=== PATIENT | female | born 1975 | race African-American/Black ===

== ENCOUNTER → 2017-07-09 16:31 | Outpatient (CLI) | payer MEDICAID, SELFPAY | PROVIDERS: Family Provider Family Medicine; PCP Family Medicine; Visit Provider Otolaryngology Otolaryngology/Facial Plastic Surgery | DX: J02.9 Acute pharyngitis, unspecified (principal) | CPT/HCPCS: 87070 ==

== ENCOUNTER 2017-08-02 07:36 | Day surgery (SDC) | payer MEDICAID, SELFPAY ==
[2017-08-02 07:56] LABS: Internal QC Validated? YES +Cl - CLEAR BKGD; Pregnancy, Urine Negative Negative
[2017-08-02 07:58] VITALS: BP 119/67; PULSE 59; RESP 16; TEMP 36.6; O2SAT 100; BMI 25.9
--- NOTE | 2017-08-02 08:47 | PCM.OPRPT ---
Problem List (1) Gastro-esophageal reflux disease without esophagitis Status: Acute Report of Operation Date of Procedure: 08/02/17 Pre-Operative Diagnosis: k21.9 gastroesophageal reflux disease without esophagitis Post-Operative Diagnosis: Same Surgery/Procedure Performed:: EGD with 48 hour pH probe Type of Anesthesia:: MAC Anesthesiologist: Jigar Chow Description of Procedure: Patient was brought into the endoscopy suite. Back of her throat was sprayed with Cetacaine spray. A bite-block was placed. She was placed on the left lateral decubitus position. She was given graded anesthesia. The scope was inserted into the back of the oropharynx and directed down through the esophagus into the stomach and into the duodenum without difficulty. Operative findings: #1 duodenum: Normal appearance no mass lesions no ulcerations #2 stomach: Normal appearance no mass lesions no ulcerations. 3. Esophagus: Normal appearance no mass lesions no signs of esophagitis Z line was at 39 cm and was normal in appearance. The scope was withdrawn. PH probe was marked at 33 cm. The probe was then placed in the back of the oropharynx and directed down to the 33 cm stacey. Suction was applied to the pH probe. It was deployed appropriately. The scope was reinserted in the back of the oropharynx and directed down through the esophagus. PH probe was identified and photograph was obtained. The scope was withdrawn and the patient tolerated the procedure well. - Admit VTE Documentation VTE Present on Admission: No VTE Mechan Device Prophylaxis: None VTE Pharm Prophylaxis ordered?: No Reason prophylaxis not ordered:: Treatment Not Indicated
[2017-08-02 08:52] VITALS: BP 119/67; PULSE 63; RESP 16; O2SAT 100
[2017-08-02 09:00] VITALS: BP 108/65; BP 119/67; PULSE 59; RESP 16; O2SAT 100
[2017-08-02 09:05] VITALS: BP 113/63; BP 119/67; PULSE 58; RESP 16; O2SAT 100
[2017-08-02 09:10] VITALS: BP 113/68; BP 119/67; PULSE 57; RESP 16; TEMP 36.4; O2SAT 100
[2017-08-02 09:34] VITALS: BP 119/67
== END 2017-08-02 09:45 | disposition home or self-care (01) ==
LOC: EN 07:37 → AC 07:38
PROVIDERS: Anesthesiology; Family Provider Family Medicine; PCP Family Medicine; Visit Provider Surgery
PROC: (CPT 43235; principal; 2017-08-02 08:25)
DX: K21.9 Gastro-esophageal reflux disease without esophagitis (principal); J30.9 Allergic rhinitis, unspecified; Z86.2 Personal history of diseases of the blood and blood-forming organs and certain disorders involving the immune mechanism; Z79.899 Other long term (current) drug therapy
CPT/HCPCS: 43235; 91035; 81025; J7120

== ENCOUNTER → 2017-09-27 11:17 | Outpatient (CLI) | payer MEDICAID, SELFPAY ==
--- NOTE | 2017-09-27 11:17 | DT_ITS ---
This patient was seen during an EMR downtime September 27, 2017 - October 04, 2017. This patient may have a combination of paper and electronic documentation or all paper documentation. All documentation is viewable within the e-chart portion of [facility] for each patient visit.
== END ==
PROVIDERS: Family Provider Family Medicine; PCP Family Medicine; Visit Provider Family Medicine
DX: R00.0 Tachycardia, unspecified (principal)
CPT/HCPCS: 93225; 93226

== ENCOUNTER 2020-12-10 17:46 | Emergency (ER) | payer MEDICAID, SELFPAY ==
[2020-12-10 17:48] VITALS: BP 116/85; PULSE 77; RESP 18; TEMP 36.8; O2SAT 99; BMI 27.6
--- NOTE | 2020-12-10 17:50 | NURSING ---
NO OLD EKGS
--- NOTE | 2020-12-10 18:07 | EDS_ITS ---
HPI History of Present Illness Chief Complaint: Chest Pain Informant: patient Narrative Narrative: Presents valuation chest pressure initially started 7 hours ago while grocery shopping. She went home laid down woke up at 4 symptoms return. Mild dyspnea pressure in the back. Denies nausea radicular symptoms or diaphoresis. No history of similar. Denies hypertension, diabetes, hypercholesterolemia. Denies family history of MIs at young age. Denies tobacco. No PE risk factors. No history of stress test. States only mild pressure at this time. Prior Similar Symptoms: No Recent Illness/Hospitalization: No CVD Risk Factors: Negative for Hypertension, Diabetes, Hypercholesterolemia, Family History 1' </=55 and Smoking PE Risk Factors: Negative for Recent Travel/Surgery, Recent Immobilization, Prior DVT or PE, Cancer and OCP + Smoking + >/=35 PFSH PFSH Medical History Allergic rhinitis GERD (gastroesophageal reflux disease) Home Medications mometasone 50 mcg/actuation nasal spray 4 spray INTRANASAL QDAY 07/15/17 [History Last Taken Unknown] montelukast 10 mg tablet 10 mg PO QHS 07/15/17 [History Last Taken Unknown] omeprazole 20 mg PO DAILY 12/10/20 [History Last Taken Unknown] Allergy/AdvReac Type Severity Reaction Status Date / Time Penicillins Allergy Unknown Verified 12/10/20 17:49 sulfamethoxazole Allergy Rash Verified 12/10/20 18:17 [From Bactrim] trimethoprim [From Bactrim] Allergy Rash Verified 12/10/20 18:17 Family History Mother Diabetes Heart disease Hypertension Asthma Father Cancer prostate Grandfather Colon cancer Surgical History S/P section s/p EGD with PH probe (~08/02/17) Social History Smoking Status: Never smoker ROS ROS ED Constitutional Constitutional ED: Denies chills, fever(s) or sweats Eyes Eyes: Denies change in vision ENT ENT ED: Denies dysphagia or sore throat Cardiovascular Cardiovascular: Reports chest pain; Denies leg edema, palpitations or racing heartbeat Respiratory/Chest Respiratory/Chest: Reports dyspnea; Denies cough or dyspnea on exertion Gastrointestinal Gastrointestinal: Denies abdominal pain, diarrhea, nausea or vomiting Genitourinary Genitourinary ED: Denies dysuria, hematuria or urinary frequency Musculoskeletal Musculoskeletal: Denies back pain, extremity pain or neck pain Integumentary Denies rash or wounds Neurologic Neurologic: Denies headache(s), paresthesias or weakness EXAM Physical Exam Const Vital Signs: 12/10/20 17:48 12/10/20 18:11 12/10/20 19:00 Temperature 98.3 F Temperature Source Temporal Pulse Rate 77 71 63 Respiratory Rate 18 13 15 Blood Pressure 116/85 H 126/87 H 120/77 Blood Pressure Mean 95 100 91 Pulse Ox 99 98 100 Oxygen Delivery Method Room Air Room Air 12/10/20 20:25 12/10/20 21:03 Temperature Temperature Source Pulse Rate 64 64 Respiratory Rate 18 15 Blood Pressure 120/77 135/85 H Blood Pressure Mean 91 101 Pulse Ox 99 99 Oxygen Delivery Method Room Air Room Air Positive well nourished and well developed General Appearance ED: well developed and NAD HEENT Reports moist mucous membranes normocephalic and atraumatic Eyes PERRL, EOMs intact bilaterally and conjunctivae normal General Eye ED: Yes normal appearance of both eyes Neck no lymphadenopathy and supple General: Negative for tenderness Chest Wall Chest: Negative for tenderness Resp normal respiratory effort and normal air movement Effort and Inspection: symmetric chest movement; Negative for respiratory distress Cardio regular rate, regular rhythm and no murmurs Peripheral Pulses: pulses 2+ throughout GI normal to inspection, nondistended, normoactive bowel sounds and non-tender Palpation: Negative for guarding or rebound tenderness present Back/Spine no CVA tenderness and no thoracic nor lumbar tenderness Extremity normal to inspection General Extremety ED: Negative for edema or tenderness General Extremity: Negative for edema Neuro oriented x3 and no sensory deficits noted Sensorium / Orientation: awake and alert Skin no rashes or lesions noted and no wounds MDM MDM MDM Narrative Medical decision making narrative: Patient presents chest pains, initial EKG nor mal. Cardiac work-up negative. Chest x-ray negative. Patient reported concerns for urine symptoms UA sent negative for infection. She had recurrent symptoms of transient repeat EKG was unchanged. High sensitive repeat troponin at 2 hours was negative and normal. She is reassured. PERC criteria negative. Discussed with patient follow-up with her PCP in the next 3 days for further outpatient testing with return precautions. All questions were answered. Lab Data Attestation: I reviewed the patient's lab results. Labs: Laboratory Results - last 24 hr 12/10/20 12/10/20 12/10/20 18:25 18:25 18:25 WBC 5.8 RBC 4.48 Hgb 10.1 L Hct 33.8 L MCV 75.4 L MCH 22.5 L MCHC 29.9 L RDW Std Deviation 54.3 H RDW Coeff of Moi 19.9 H Plt Count 332 MPV 11.5 Immature Gran % (Auto) 0.500 Neut % (Auto) 58.2 Lymph % (Auto) 31.4 Holmes % (Auto) 7.8 Eos % (Auto) 1.2 Baso % (Auto) 0.9 Absolute Neuts (auto) 3.4 Absolute Lymphs (auto) 1.81 Nucleated RBC % 0 Sodium 136 Potassium 3.2 L Chloride 104 Carbon Dioxide 26.0 Anion Gap 6 BUN 7 Creatinine 0.61 Estim Creat Clear Calc 114.25 Est GFR (MDRD) Af Amer 136 Est GFR (MDRD) Non-Af 112 BUN/Creatinine Ratio 11.4 Glucose 91 Calcium 8.5 Troponin I High Sens 4.2 Urine Color Yellow Urine Clarity Clear Urine pH 8.0 Ur Specific [place] 1.015 Urine Protein Negative Urine Glucose (UA) Normal Urine Ketones Negative Urine Occult Blood Negative Urine Nitrite Negative Urine Bilirubin Negative Urine Urobilinogen Normal Ur Leukocyte Esterase Negative Urine RBC 0 SEEN Urine WBC 0 SEEN Ur Squamous Epith Cells 0 SEEN Urine Bacteria 0 SEEN Urine Mucus 0 SEEN 12/10/20 20:30 WBC RBC Hgb Hct MCV MCH MCHC RDW Std Deviation RDW Coeff of Moi Plt Count MPV Immature Gran % (Auto) Neut % (Auto) Lymph % (Auto) Holmes % (Auto) Eos % (Auto) Baso % (Auto) Absolute Neuts (auto) Absolute Lymphs (auto) Nucleated RBC % Sodium Potassium Chloride Carbon Dioxide Anion Gap BUN Creatinine Estim Creat Clear Calc Est GFR (MDRD) Af Amer Est GFR (MDRD) Non-Af BUN/Creatinine Ratio Glucose Calcium Troponin I High Sens 4.6 Urine Color Urine Clarity Urine pH Ur Specific [place] Urine Protein Urine Glucose (UA) Urine Ketones Urine Occult Blood Urine Nitrite Urine Bilirubin Urine Urobilinogen Ur Leukocyte Esterase Urine RBC Urine WBC Ur Squamous Epith Cells Urine Bacteria Urine Mucus Radiography Chest X-Ray - ED: 1 View, Read by ED Physician, Read by Radiologist and Normal Diagnostic Testing: Radiology Impression Chest X-Ray 12/10/20 18:30 IMPRESSION: Normal x-ray examination of the chest. Electronically Signed: Javier ShelbyDO at 19:42 EDT Tel [phone], Service support , EKG Initial EKG: Attestation: I personally reviewed and interpreted this EKG as follows: Interpretation: Sinus Rhythm Comments: Sinus rate of 69, no ST changes isolated T wave inversion in leads III. Nonspecific. Follow-up EKG: Attestation: I personally reviewed and interpreted this EKG as follows: Comments: Repeat EKG at 2028 unchanged. Discharge Plan Triage Chief Complaint: Chest Pain ED Provider: Anatoly Garrett Dx/Rx/DC Orders Clinical Impression: Chest pain Instructions: ED Chest Pain, Uncertain Cause Prescriptions: No Action montelukast [Singulair] 10 mg tablet 10 mg PO QHS RF: 0 mometasone [Nasonex] 50 mcg/actuation spray,non-aerosol 4 spray INTRANASAL QDAY RF: 0 omeprazole 20 mg Tablet,Delayed Release (Dr/Ec) 20 mg PO DAILY RF: 0 Primary Care Provider: Frank Guevara Referrals: Frank Guevara MD [Primary Care Provider] - 3-5 Days Activity Restrictions/Additional Instructions: Cardiac work-up negative today. Follow-up with your doctor in 3 days for further testing as an outpatient. Return if any worsening symptoms. Disposition Disposition: Home, Self Care
--- NOTE | 2020-12-10 18:07 | EKG12_ITS ---
Test Reason : REPEAT CP Blood Pressure : / mmHG Vent. Rate : 055 BPM Atrial Rate : 055 BPM P-R Int : 148 ms QRS Dur : 080 ms QT Int : 432 ms P-R-T Axes : 063 063 047 degrees QTc Int : 413 ms Sinus bradycardia Otherwise normal ECG Confirmed by TIP GONZALEZ, MIKE ([id number]), senior technical editor LUZ MARIA GRAHAM ([id number]) on 12/11/2020 1:46:22 PM Referred By: STACIE Confirmed By:MIKE WHELAN MD
[2020-12-10 18:11] VITALS: BP 126/87; PULSE 71; RESP 13; O2SAT 98
[2020-12-10] MEDS: Aspirin 81 MG TAB.CHEW 324 MG PO (18:14)
--- NOTE | 2020-12-10 18:30 | RAD_ITS ---
STUDY: X-RAY CHEST REASON FOR EXAM: Female, 45 years old. Chest pain TECHNIQUE: Frontal view COMPARISON: None. FINDINGS: The lungs are clear and expanded. There is no demonstrated pleural abnormality. Normal size heart. Normal mediastinum and parisa. Normal visualized pulmonary arteries. Normal visualized aortic arch and descending thoracic aorta. Normal visualized thoracic spine. Normal visualized ribs, clavicles, and shoulders. There is no demonstrated abnormality of the visualized soft tissue structures of the upper abdomen. RAD/Chest 1 View (Portable) IMPRESSION: Normal x-ray examination of the chest. Electronically Signed: Javier Shelby DO at 19:42 EDT Tel [phone], Service support ,
[2020-12-10 18:31] LABS: Absolute Lymphocyte Count 1.81 X10^3/uL (0.83-4.51); Absolute Neutrophil Count 3.4 X10^3/uL (2.0-7.7); Basophil# 0.05 X10^3/uL; Basophil% 0.9 % (0-1); Eosinophil# 0.07 X10^3/uL; Eosinophils% 1.2 % (0-5); Hematocrit 33.8 % (37-47); Hemoglobin 10.1 g/dL (12.0-15.0); Lymphocyte # 1.81 X10^3/ul (0.83-4.51); Lymphocyte % 31.4 % (19-41); Mean Corp Hgb Conc 29.9 g/dL (32-36); Mean Corpuscular Hgb 22.5 pg (27.0-32.0); Mean Corpuscular Volume 75.4 fL (81-99); Mean Platelet Vol. 11.5 fl (6.2-12.0); Monocyte# 0.45 X10^3/uL; Monocyte% 7.8 % (0-10); NRBC Flagged by Analyzer 0 % (0-5); Neutrophil # 3.35 X10^3/uL (2.7-7.7); Neutrophil % 58.2 % (47-70); Platelet Count 332 K/mm3 (150-450); RBC Distribution Width CV 19.9 % (11.6-14.6); RBC Distribution Width SD 54.3 fl (35.1-43.9); Red Blood Count 4.48 M/mm3 (4.2-5.4); White Blood Count 5.8 K/mm3 (4.4-11.0)
[2020-12-10 18:50] LABS: Anion Gap 6 (5-15); BUN 7 mg/dL (7-18); BUN/Creat Ratio 11.4 RATIO (10-20); Calcium,Total 8.5 mg/dL (8.5-10.1); Chloride 104 mmol/L (98-107); Creatinine, Serum 0.61 mg/dL (0.55-1.02); EST Glomerular Filtration Rate 112 mL/min (>60); Est Glom Filt Rate - Afr Amer 136 mL/min (>60); Estimated Creatinine Clearance 114.25 ml/min; Glucose 91 mg/dL (74-106); Potassium 3.2 mmol/L (3.5-5.1); Sodium Level 136 mmol/L (136-145); Troponin-I HS 4.2 pg/mL (3.0-53.7)
[2020-12-10 19:00] VITALS: BP 120/77; PULSE 63; RESP 15; O2SAT 100
[2020-12-10 19:39] LABS: Bacteria 0 SEEN /hpf (None Seen); Mucous, Urine 0 SEEN /hpf (<or=2+); Red Blood Cells-Urine 0 SEEN /hpf (0-5); Squamous Epithelial Cells - UA 0 SEEN /hpf (5-10); White Blood Cells 0 SEEN /hpf (0-5)
[2020-12-10 19:44] LABS: Color, Urine Yellow (Yellow); Glucose, Dipstick Normal (Normal); Ketone-Dipstick Negative (Negative); Leukocyte Esterase-Dipstick Negative /ul (Negative); Nitrite-Dipstick Negative (Negative); Occult Blood-Urine Negative /ul (Negative); Protein-Dipstick Negative (Negative); Specific Gravity, Urine 1.015 (1.002-1.030); Urine Bilirubin Dipstick Negative (Negative); Urine Clarity Clear (Clear); Urine Urobilinogen Normal (Normal)
[2020-12-10 20:25] VITALS: BP 120/77; PULSE 64; RESP 18; O2SAT 99
--- NOTE | 2020-12-10 20:25 | EKG12_ITS ---
Test Reason : Blood Pressure : / mmHG Vent. Rate : 069 BPM Atrial Rate : 069 BPM P-R Int : 140 ms QRS Dur : 072 ms QT Int : 398 ms P-R-T Axes : 069 065 031 degrees QTc Int : 426 ms Normal sinus rhythm Nonspecific ST abnormality Abnormal ECG Confirmed by TIP GONZALEZ, MIKE ([id number]), online editor LUZ MARIA GRAHAM ([id number]) on 12/11/2020 1:46:38 PM Referred By: JENY Confirmed By:MIKE WHELAN MD
[2020-12-10 20:53] LABS: Troponin-I HS 4.6 pg/mL (3.0-53.7)
[2020-12-10] MEDS: Acetaminophen 500 MG Tablet 1000 MG PO (21:01)
[2020-12-10 21:03] VITALS: BP 135/85; PULSE 64; RESP 15; O2SAT 99
== END 2020-12-10 22:04 | disposition home or self-care (01) ==
PROVIDERS: Emergency Provider Emergency Medicine; PCP Family Medicine
DX: R07.89 Other chest pain (principal); R06.00 Dyspnea, unspecified; K21.9 Gastro-esophageal reflux disease without esophagitis; Z79.899 Other long term (current) drug therapy; R00.1 Bradycardia, unspecified
CPT/HCPCS: 71045; 80048; 81001; 84484; 85025; 93005; 99285; A4216

== ENCOUNTER 2021-02-25 15:09 | Observation (INO) | payer MEDICAID, SELFPAY ==
[2021-02-25] VITALS (12 sets, daily range): BP systolic 109–139; BP diastolic 69–92; PULSE 55–70; RESP 12–18; TEMP 36–36.9; O2SAT 97–100; BMI 24.5
--- NOTE | 2021-02-25 15:14 | EKG12_ITS ---
Test Reason : CP Blood Pressure : / mmHG Vent. Rate : 058 BPM Atrial Rate : 058 BPM P-R Int : 146 ms QRS Dur : 074 ms QT Int : 406 ms P-R-T Axes : 053 056 027 degrees QTc Int : 398 ms Sinus bradycardia Low voltage QRS (Limb Leads) Confirmed by MELISSA GONZALEZ, BEKAH ([id number]), department editor LUZ MARIA GRAHAM ([id number]) on 02/27/2021 8:50:28 AM Referred By: RAMÍREZ Confirmed By:BEKAH TORRES MD
--- NOTE | 2021-02-25 15:22 | RAD_ITS ---
STUDY: X-RAY CHEST REASON FOR EXAM: Female, 45 years old. Chest pain TECHNIQUE: Single AP portable view of the chest. COMPARISON: Comparison is made with prior study 12/10/2020. FINDINGS: The lungs are clear and expanded. There is no demonstrated pleural abnormality. Normal size heart. Normal mediastinum and parisa. Normal visualized pulmonary arteries. Normal visualized aortic arch and descending thoracic aorta. Normal visualized thoracic spine. Normal visualized ribs, clavicles, and shoulders. There is no demonstrated abnormality of the visualized soft tissue structures of the upper abdomen. RAD/Chest 1 View (Portable) IMPRESSION: Normal x-ray examination of the chest. Electronically Signed: Rad Biggs MD at 15:34 EDT , Service support ,
[2021-02-25 15:58] LABS: Absolute Lymphocyte Count 1.42 X10^3/uL (0.83-4.51); Absolute Neutrophil Count 3.5 X10^3/uL (2.0-7.7); Basophil# 0.03 X10^3/uL; Basophil% 0.6 % (0-1); Eosinophil# 0.05 X10^3/uL; Eosinophils% 0.9 % (0-5); Hematocrit 33.3 % (37-47); Hemoglobin 10.3 g/dL (12.0-15.0); Lymphocyte # 1.42 X10^3/ul (0.83-4.51); Lymphocyte % 26.2 % (19-41); Mean Corp Hgb Conc 30.9 g/dL (32-36); Mean Corpuscular Volume 77.6 fL (81-99); Monocyte# 0.41 X10^3/uL; Monocyte% 7.6 % (0-10); NRBC Flagged by Analyzer 0 % (0-5); Neutrophil # 3.49 X10^3/uL (2.7-7.7); Neutrophil % 64.5 % (47-70); POSITIVE MORPHOLOGY YES; Platelet Count 281 K/mm3 (150-450); RBC Distribution Width CV 20.6 % (11.6-14.6); RBC Distribution Width SD 57.4 fl (35.1-43.9); Red Blood Count 4.29 M/mm3 (4.2-5.4); White Blood Count 5.4 K/mm3 (4.4-11.0)
--- NOTE | 2021-02-25 15:58 | ED.VIS.CHEST ---
HPI History of Present Illness Chief Complaint: Chest Pain Informant: patient Narrative Narrative: This is an overall healthy patient referred in here for chest pain with an abnormal stress test yesterday. She started having symptoms back in November. She was seen here in evaluation. This patient has very low risk factors. She has no history of smoking, blood pressure, diabetes, cholesterol or obesity. She has healthy and exercises. She was treated for reflux with a PPI. This was increased and her symptoms did improve somewhat. But she still seems to get chest pain mostly when exercising. This is caused her to decrease the exercise slightly. She got nauseated once or twice but generally does not. She has not had diaphoresis lightheadedness or shortness of breath with it. She followed up with her primary physician got an outpatient stress test. This was done yesterday. The test was terminated due to the patient having chest discomfort and ST depression. Symptoms resolved with rest. She called her physician today and states she was having some more symptoms. The results of the stress test were obtained and she was sent in here. She states she has a little bit of discomfort in her left upper chest at this time. It is much less than normal. When she gets the discomfort, it is a burning or pressure in the left chest is more radiating toward the back of the left shoulder. [facility] Medical History Allergic rhinitis GERD (gastroesophageal reflux disease) Graves disease Home Medications mometasone 50 mcg/actuation nasal spray 4 spray INTRANASAL QDAY 07/15/17 [History Last Taken Unknown] montelukast 10 mg tablet 10 mg PO QHS 07/15/17 [History Last Taken Unknown] omeprazole 20 mg PO DAILY PRN 12/10/20 [History Last Taken Unknown] ferrous sulfate 325 mg PO DAILY 02/25/21 [History Last Taken Unknown] Allergy/AdvReac Type Severity Reaction Status Date / Time Penicillins Allergy Unknown Verified 12/10/20 17:49 sulfamethoxazole Allergy Rash Verified 12/10/20 18:17 [From Bactrim] trimethoprim [From Bactrim] Allergy Rash Verified 12/10/20 18:17 Family History Mother Diabetes Heart disease Hypertension Asthma Father Cancer prostate Grandfather Colon cancer Surgical History S/P section s/p EGD with PH probe (~08/02/17) Social History Smoking Status: Never smoker ROS ROS ED Constitutional Constitutional ED: Denies fever(s) or subjective Eyes Eyes: Denies blurry vision or change in vision ENT ENT ED: Denies rhinorrhea or sore throat Cardiovascular Cardiovascular: Reports as per HPI and chest pain; Denies palpitations Respiratory/Chest Respiratory/Chest: Denies cough or dyspnea Gastrointestinal Gastrointestinal: Reports nausea; Denies abdominal pain, diarrhea or vomiting Musculoskeletal Musculoskeletal: Denies arthralgias or neck pain Integumentary Denies rash Neurologic Neurologic: Denies headache(s), paresthesias or weakness Endocrine Endocrinology: Denies polydipsia or polyuria Hematologic/Lymphatic Hematologic/Lymphatic: Denies easy bleeding or easy bruising Allergic/Immunologic Allergic/Immunologic ED: Denies urticaria EXAM Physical Exam Const Vital Signs: 02/25/21 15:09 02/25/21 15:39 02/25/21 16:28 Temperature 97.7 F L Temperature Source Temporal Pulse Rate 70 62 61 Respiratory Rate 16 16 14 Respiratory Effort Normal Non-Labored Blood Pressure 139/92 H Blood Pressure Mean 107 Pulse Ox 100 100 97 Oxygen Delivery Method Room Air Room Air Room Air 02/25/21 16:42 Temperature Temperature Source Pulse Rate 59 L Respiratory Rate 12 Respiratory Effort Blood Pressure 119/85 H Blood Pressure Mean 96 Pulse Ox 99 Oxygen Delivery Method Room Air Positive well nourished and well developed General Appearance ED: well developed and NAD HEENT normocephalic and atraumatic Eyes General Eye ED: Negative for pale conjunctiva or scleral icterus Neck no JVD Resp normal respiratory effort and clear to auscultation bilaterally Effort and Inspection: Negative for pain with movement Auscultation: Negative for rales, rhonchi or wheezes Cardio regular rate, regular rhythm and no murmurs GI normal to inspection, nondistended, normoactive bowel sounds, soft to palpation and non-tender Back/Spine no CVA tenderness Extremity normal to inspection General Extremety ED: Negative for edema or tenderness General Extremity: Negative for edema Neuro Sensorium / Orientation: awake and alert Psych mental status grossly normal Skin no rashes or lesions noted MDM MDM MDM Narrative Medical decision making narrative: Chest x-ray is normal. CBC shows mild anemia at 10.3 but I do not think this is likely the cause of her symptoms. Potassium is also minimally low at 3.3. Troponin is negative. However, this patient has exertional chest pain with a concerning stress test. She will be brought in the hospital. She will be given aspirin. Lab Data Attestation: I reviewed the patient's lab results. Labs: Laboratory Results - last 24 hr 02/25/21 02/25/21 15:42 15:42 WBC 5.4 RBC 4.29 Hgb 10.3 L Hct 33.3 L MCV 77.6 L MCH 24.0 L MCHC 30.9 L RDW Std Deviation 57.4 H RDW Coeff of Moi 20.6 H Plt Count 281 MPV TNP Immature Gran % (Auto) 0.200 Neut % (Auto) 64.5 Lymph % (Auto) 26.2 [place] % (Auto) 7.6 Eos % (Auto) 0.9 Baso % (Auto) 0.6 Absolute Neuts (auto) 3.5 Absolute Lymphs (auto) 1.42 Nucleated RBC % 0 Differential Comment SCANNED Sodium 140 Potassium 3.3 L Chloride 108 H Carbon Dioxide 29.0 Anion Gap 3 L BUN 7 Creatinine 0.60 Estim Creat Clear Calc 89.35 Est GFR (MDRD) Af Amer 139 Est GFR (MDRD) Non-Af 115 BUN/Creatinine Ratio 11.7 Glucose 99 Calcium 8.6 Troponin I High Sens 5 Radiography Diagnostic Testing: Clinical Impression(s) from Imaging Studies Chest X-Ray 02/25/21 15:22 IMPRESSION: Normal x-ray examination of the chest. Electronically Signed: Rad Biggs MD at 15:34 EDT , Service support , EKG Initial EKG: Comments: EKG done for chest pain read by me shows normal sinus rhythm with bradycardic rate at 58. No ectopy. Mild baseline variation. No acute ST elevation or depression. MA interval, QRS duration and QTc normal. Discharge Plan Triage Chief Complaint: Chest Pain ED Provider: Isacc Camara Dx/Rx/DC Orders Clinical Impression: Chest pain, Positive cardiac stress test Prescriptions: No Action montelukast [Singulair] 10 mg tablet 10 mg PO QHS RF: 0 mometasone [Nasonex] 50 mcg/actuation spray,non-aerosol 4 spray INTRANASAL QDAY RF: 0 omeprazole 20 mg Tablet,Delayed Release (Dr/Ec) 20 mg PO DAILY PRN (Reason: Heartburn) RF: 0 ferrous sulfate 325 mg (65 mg iron) tablet 325 mg PO DAILY RF: 0 Primary Care Provider: Frank Guevara Referrals: Frank Guevara MD [Primary Care Provider] - Disposition Disposition: Acute Care Hospital [facility]
[2021-02-25 16:01] LABS: Differential Indicated SCAN CRITERIA MET
[2021-02-25 16:16] LABS: Anion Gap 3 (5-15); BUN 7 mg/dL (7-18); BUN/Creat Ratio 11.7 RATIO (10-20); Calcium,Total 8.6 mg/dL (8.5-10.1); Chloride 108 mmol/L (98-107); EST Glomerular Filtration Rate 115 mL/min (>60); Est Glom Filt Rate - Afr Amer 139 mL/min (>60); Estimated Creatinine Clearance 89.35 ml/min; Glucose 99 mg/dL (74-106); Potassium 3.3 mmol/L (3.5-5.1); Sodium Level 140 mmol/L (136-145); Troponin-I HS 5 pg/mL (3.0-54.0)
[2021-02-25 16:25] LABS: Differential Comment SCANNED
--- NOTE | 2021-02-25 16:56 | PCM.HP.STD ---
HPI - General General Date of Admission: 02/25/21 Date of Service: 02/25/21 Chief Complaint: Intermittent chest pain, abnormal stress test. HPI Narrative The patient is a 45 y/o F w/ PMHx: Graves disease, GERD, Allergic rhinitis, Chronic Fe Deficiency anemia with chronic menorrhagia with fibroids who presents to the [facility] ED on 02/25/21 with history of ongoing intermittent chest pain, primarily midsternal, described as a discomfort/ache with radiation to the left shoulder blade and shoulder which actually started back in November with evaluation, and given considered low risk at that time discharged to home without patient PCP follow-up with 02/24/21 outpatient stress testing concerning for inducible ischemia with referral to ED. She notes having had the testing performed at the [facility] outpatient facility. She notes the episodes of chest discomfort with occur primarily with increased exertion with bouts of nausea with no diaphoresis, lightheadedness or dyspnea with onset. During the stress test patient had onset of chest discomfort and also had noted some EKG depressions specifically she notes. Patient does report some discomfort at this time yesterday in the left upper chest primarily described primary discomfort, rated 2-2/10, aching discomfort with some pressure with similar radiation toward the L shoulder blade and shoulder. 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 Work-up in the ED included T 97.9, heart rate 70, BP initially 39/92 with repeat 119/85, respiratory rate 16, 100% on room air, CBC with WBC 5.4, hemoglobin 10.3 with MCV 77.6, platelet 281 without shift, BMP with potassium 3.3, chloride 108 otherwise not marked appearing, troponin V high-sensitivity, chest x-ray with no acute cardiopulmonary findings, EKG with sinus rhythm with bradycardic rate [address] elevation or depression. [facility] Medical History (Updated 02/25/21 @ 20:[address] Aneta Aly MD) Allergic rhinitis Chronic iron deficiency anemia GERD (gastroesophageal reflux disease) Graves disease Menorrhagia Home Medications mometasone 50 mcg/actuation nasal spray 4 spray INTRANASAL QDAY 07/15/17 [History Last Taken Unknown] montelukast 10 mg tablet 10 mg PO QHS 07/15/17 [History Last Taken Unknown] omeprazole 20 mg PO DAILY PRN 12/10/20 [History Last Taken Unknown] ferrous sulfate 325 mg PO DAILY 02/25/21 [History Last Taken Unknown] Allergy/AdvReac Type Severity Reaction Status Date / Time Penicillins Allergy Unknown Verified 12/10/20 17:49 sulfamethoxazole Allergy Rash Verified 12/10/20 18:17 [From Bactrim] trimethoprim [From Bactrim] Allergy Rash Verified 12/10/20 18:17 Family History Mother Diabetes Heart disease Hypertension Asthma Father Cancer prostate Grandfather Colon cancer Surgical History (Updated 02/25/21 @ 20:[address] Aneta Aly MD) S/P section s/p EGD with PH probe (~08/02/17) Social History (Updated 02/25/21 @ 20:[address] Aneta Aly MD) household members: spouse and family Smoking Status: Never smoker alcohol intake: current alcohol intake frequency: a few times a month substance use type: does not use ROS ROS Narrative Admission Review of Systems: CONSTITUTIONAL: No weight loss, fever, chills, + weakness or fatigue. HEENT: Eyes: No visual loss, blurred vision, double vision or yellow sclerae. Ears, Nose, Throat: No hearing loss, sneezing, congestion, runny nose or sore throat. SKIN: No rash or itching, lesions, wounds. CARDIOVASCULAR: + chest pain, chest pressure or chest discomfort, No palpitations, edema, orthopnea, syncopal events. RESPIRATORY: No shortness of breath, cough or sputum, wheezing, hemoptysis. GASTROINTESTINAL: No anorexia, nausea, vomiting or diarrhea, abdominal pain, melena, BRBPR. GENITOURINARY: No dysuria, frequency, urgency or retention. + Menorrhagia hx. NEUROLOGICAL: No headache, dizziness, syncope, paralysis, ataxia, numbness or tingling in the extremities, focal weakness, change in bowel or bladder control, seizure. MUSCULOSKELETAL: + muscle, back pain, joint pain or stiffness. HEMATOLOGIC: + anemia, bleeding or bruising. LYMPHATICS: No enlarged nodes. No history of splenectomy. PSYCHIATRIC: No history of depression or anxiety. ENDOCRINOLOGIC: No reports of sweating, cold or heat intolerance. No polyuria or polydipsia. ALLERGIES: + history of asthma, hives, eczema or rhinitis. Vital Signs Vital Signs Vital Signs: 02/25/21 15:09 02/25/21 15:39 02/25/21 16:28 Temperature 97.7 F L Temperature Source Temporal Pulse Rate 70 62 61 Respiratory Rate 16 16 14 Respiratory Effort Normal Non-Labored Blood Pressure 139/92 H Blood Pressure Mean 107 Pulse Ox 100 100 97 Oxygen Delivery Method Room Air Room Air Room Air 02/25/21 16:42 Temperature Temperature Source Pulse Rate 59 L Respiratory Rate 12 Respiratory Effort Blood Pressure 119/85 H Blood Pressure Mean 96 Pulse Ox 99 Oxygen Delivery Method Room Air Weight Weight: 130 lb Body Mass Index (BMI) 24.5 Physical Exam Narrative Physical Examination: General: Awake, alert, oriented x 3 and cooperative, seated upright in the ED bed in no apparent distress, no current discomfort. Skin: Normal color, normal turgor, no icterus, no cyanosis. HEENT: AT/NC, EOMI, PERRLA, MMM, no carotid bruits or JVD noted. Lungs: CTA bilaterally, moderate effort, mild decrease BL bases, no rales, ronchi or wheezing. Heart: Regular rate and rhythm; no gallop, rub audible. Abdomen: Soft, NTTP, ND, normal BS, no HSM. Extremities: No cyanosis, clubbing, or edema. Neurological: Patient awake, alert, oriented as noted, cognitive function intact; pupils equally reactive to light and accommodation, cranial nerves II-XII grossly normal, moving all 4 extremities, no focal deficits, strength preserved. Psychiatric: Affect appears fatigued otherwise normal, no acute evidence of depressive or anxiety feelings. Results Lab / Micro Data Result Diagrams: 02/25/21 15:42 02/25/21 15:42 Labs: Laboratory Results - last 24 hr 02/25/21 15:42: WBC 5.4, RBC 4.29, Hgb 10.3 L, Hct 33.3 L, MCV 77.6 L, MCH 24.0 L, MCHC 30.9 L, RDW Std Deviation 57.4 H, RDW Coeff of Moi 20.6 H, Plt Count 281, MPV TNP, Immature Gran % (Auto) 0.200, Neut % (Auto) 64.5, Lymph % (Auto) 26.2, [place] % (Auto) 7.6, Eos % (Auto) 0.9, Baso % (Auto) 0.6, Absolute Neuts (auto) 3.5, Absolute Lymphs (auto) 1.42, Nucleated RBC % 0, Differential Comment SCANNED 02/25/21 15:42: Sodium 140, Potassium 3.3 L, Chloride 108 H, Carbon Dioxide 29.0, Anion Gap 3 L, BUN 7, Creatinine 0.60, Estim Creat Clear Calc 89.35, Est GFR (MDRD) Af Amer 139, Est GFR (MDRD) Non-Af 115, BUN/Creatinine Ratio 11.7, Glucose 99, Calcium 8.6, Troponin I High Sens 5 Radiology Impression Chest X-Ray 02/25/21 15:22 IMPRESSION: Normal x-ray examination of the chest. Electronically Signed: Rad Biggs MD at 15:34 EDT , Service support , Assessment & Plan Assessment/Plan (1) Chest pain: QUALIFIERS: Chest pain type: unspecified Qualified Code(s): R07.9 - Chest pain, unspecified (2) Positive cardiac stress test: PLAN: The patient is a 45 y/o F w/ PMHx: Graves disease, GERD, Allergic rhinitis, Chronic Fe Deficiency anemia with chronic menorrhagia with fibroids who presents to the [facility] ED on 02/25/21 with history of ongoing intermittent chest pain, primarily midsternal, described as a discomfort/ache with radiation to the left shoulder blade and shoulder which actually started back in November with evaluation, and given considered low risk at that time discharged to home without patient PCP follow-up with 02/24/21 outpatient stress testing concerning for inducible ischemia with referral to ED. 1. Chest Pain: EKG in ED sinus rhythm with no acute evidence of ischemia, CXR w/ no acute cardiopulmonary findings, initial trop 5 with repeat similarly 5. Will admit to PCU, place on a monitored bed to assure no acute myocardial infarction with serial cardiac enzymes and EKGs. Given patient history of recent abnormal stress testing will consult cardiology, maintain n.p.o. status after midnight, maintain on aspirin therapy, FLP in AM, supplement potassium and obtain magnesium level with repletion as needed. Will obtain coags. ASA, NG, morphine. Will request recent stress testing and history records. 2. Hypokalemia: Admission K+ 3.3, magnesium level requested, supplementation given, repeat level in AM. 3. Chronic Microcytic anemia/Fe deficiency associated with chronic menorrhagia with fibroids: Admission hemoglobin 10.3, MCV 77.6 patient notes unfortunately she is not a candidate for any specific interventions as the fibroids are smaller and did not tolerate control well. May complicate presentation if #1 evaluation with any PCI necessities and follow-up with her stitcher special machine may be necessary for more permanent intervention if this is the case. Patient currently reports regular cycles with initial 3 days light spotting followed by 3 days of significantly heavy bleeding. We will continue patient on iron supplementation. 4. Allergic rhinitis: We will continue patient home montelukast and nasal steroid spray. 5. GERD: We will continue patient home PPI. 6. Graves' disease: We will obtain TSH, free T4 levels. 7. DVT prophylaxis: SCDs, cautiously Lovenox is currently on cycle. Charges/Coding Visit Charges OBSV E&M: 50022 Initial observation care L3
[2021-02-25] MEDS: Aspirin 81 MG TAB.CHEW 324 MG PO (17:13)
[2021-02-25] MEDS: Potassium Chloride Oral Tablet 20 MEQ 40 MEQ PO (19:17)
--- NOTE | 2021-02-25 19:29 | EKG12_ITS ---
Test Reason : CP ADMISSION Blood Pressure : / mmHG Vent. Rate : 055 BPM Atrial Rate : 055 BPM P-R Int : 148 ms QRS Dur : 076 ms QT Int : 440 ms P-R-T Axes : 066 053 039 degrees QTc Int : 420 ms Sinus bradycardia Otherwise normal ECG Confirmed by MELISSA GONZALEZ, BEKAH ([id number]), proposal editor LUZ MARIA GRAHAM ([id number]) on 02/27/2021 9:08:05 AM Referred By: ASHLYN Confirmed By:BEKAH TORRES MD
[2021-02-25 20:25] LABS: Troponin-I HS 5 pg/mL (3.0-54.0)
--- NOTE | 2021-02-25 21:15 | PCM.CONS.C ---
Assessment & Plan Assessment/Plan (1) Chest pain: QUALIFIERS: Chest pain type: unspecified Qualified Code(s): R07.9 - Chest pain, unspecified PLAN: The patient does have chest discomfort. There are findings concerning for angina pectoris. At the same time the patient may not have all the classic findings concerning for angina pectoris. She has been evaluated noninvasively for both noncardiac and cardiac issues. Thus far she states despite her ongoing evaluation from a noncardiac standpoint/medical therapy from a noncardiac standpoint she continues to have symptoms. Her cardiovascular evaluation demonstrated a positive treadmill stress test. She has been referred for further evaluation and care. At the present time she will continue to be monitored. Her cardiac enzymes are negative thus far. Her ECG is demonstrated no acute change. A copy of her echocardiogram will be requested for continuity of care. Further evaluation of her coronary artery status was discussed with her including diagnostic cardiac catheterization. The procedure and risk were discussed with her. She was agreeable to this approach. In the interim she will continue medical therapy such as aspirin, nitrates as needed, beta-blockers as tolerated, etc. Also she will have additional cardiovascular risk factor evaluation with fasting lipid profile. (2) Positive cardiac stress test: PLAN: Her treadmill stress test summary is as noted. Again this is raise concern about the possibility of underlying CAD and myocardial ischemia. Thus with her recurrent chest discomfort and now hospitalization it was felt reasonable she proceed with further definitive evaluation with diagnostic cardiac catheterization. As noted above she was agreeable to this approach. (3) Gastro-esophageal reflux disease without esophagitis: PLAN: The patient has been treated for GERD. She will continue medical therapy as deemed appropriate per internal medicine. Addt'l Comments The above was discussed and reviewed with the patient. She was agreeable to this approach. This note was generated using a voice recognition system and there may be incorrect words, spelling or punctuation that were not noted when reviewing the office note prior to saving. HPI Consult Data Date of Consult: 02/25/21 HPI Narrative HPI Narrative: FRIEDA POZO, is a 45 year old female who presents for cardiovascular consultation based upon concerns of chest discomfort and an abnormal [facility] treadmill stress test. To the best of the patient's knowledge she has no known cardiovascular disease other than a cardiac murmur for which she has been evaluated at [facility] by cardiology in the past. She believes she had a transthoracic echocardiogram which was reported as unremarkable. She states for some time now she has been having chest discomfort which she states is mainly exertional. She feels a pressure in her chest. It does not necessarily radiate. She does get concerns of an element of shortness of breath and dyspnea. She has not had ongoing nausea, emesis, or diaphoresis. There is been no orthopnea, PND, peripheral pitting edema. She has had no near syncope or syncope. She states there were concerns her symptoms were related to gastroesophageal reflux. She was being treated medically with a PPI. She was subsequently referred for an outpatient treadmill stress test. She had a treadmill stress test performed yesterday at their facility. It appears she exercised on a Haseeb protocol for 5 minutes and 39 seconds achieving 75% predicted maximal heart rate with a peak blood pressure 120/82 mmHg and a peak METS capacity of 6 METS. She did develop her chest discomfort. She did develop ST segment depression. She states the collections representative at that time discontinued her study based upon the aforementioned concerns. She states she was originally being considered for a future outpatient cardiac CTA study. However in the interim she had more chest discomfort. She contacted her physician's office and was referred to the [facility] emergency department for further evaluation. Thus far her cardiac enzymes have been negative. Her ECG demonstrated sinus rhythm/sinus bradycardia. There were no acute ECG changes. She was placed in the PCU with recommendations for cardiovascular consultation for additional diagnostic studies, etc. [facility], [facility] Medical History (Updated 02/25/21 @ 20:[address] Aneta Aly MD) Allergic rhinitis Chronic iron deficiency anemia GERD (gastroesophageal reflux disease) Graves disease Menorrhagia Home Medications mometasone 50 mcg/actuation nasal spray 4 spray INTRANASAL QDAY 07/15/17 [History Last Taken Unknown] montelukast 10 mg tablet 10 mg PO QHS 07/15/17 [History Last Taken Unknown] omeprazole 20 mg PO DAILY PRN 12/10/20 [History Last Taken Unknown] ferrous sulfate 325 mg PO DAILY 02/25/21 [History Last Taken Unknown] Allergy/AdvReac Type Severity Reaction Status Date / Time Penicillins Allergy Unknown Verified 12/10/20 17:49 sulfamethoxazole Allergy Rash Verified 12/10/20 18:17 [From Bactrim] trimethoprim [From Bactrim] Allergy Rash Verified 08/17/21 18:17 Family History Mother Diabetes Heart disease Hypertension Asthma Father Cancer prostate Grandfather Colon cancer Surgical History (Updated 02/25/21 @ 20:[address] Aneta Aly MD) S/P section s/p EGD with PH probe (~08/02/17) Social History (Updated 02/25/21 @ 20:[address] Aneta Aly MD) household members: spouse and family Smoking Status: Never smoker alcohol intake: current alcohol intake frequency: a few times a month substance use type: does not use ROS Constitutional Constitutional: Reports as per HPI Eyes Eyes: Reports as per HPI ENT HEENT: Reports as per HPI Cardiovascular Cardiovascular: Reports chest pain with activity and dyspnea Respiratory/Chest Respiratory/Chest: Reports dyspnea Gastrointestinal Gastrointestinal: Reports as per HPI Genitourinary Genitourinary: Reports as per HPI Musculoskeletal Musculoskeletal: Reports as per HPI Integumentary Integumentary: Reports as per HPI Neurologic Neurologic: Reports as per HPI Physical Exam Const alert, oriented x3, no apparent distress and healthy appearing Orientation / Consciousness: awake HEENT normocephalic, head/scalp atraumatic and hearing grossly normal bilaterally Eyes PERRL, EOMs intact bilaterally and conjunctivae normal Neck full ROM, supple and no JVD Resp clear to auscultation bilaterally Cardio regular rhythm, S1 normal heart sound and S2 normal heart sound Rate: bradycardia Heart Sounds: murmur systolic II/ soft mid left sternal border, LVOT and sternal notch Extremity no pedal edema Skin no rashes or lesions noted Neuro oriented x3, moves all extremities, no focal motor deficits and no sensory deficits noted Psych mental status grossly normal Risk Stratification Risk Stratification Applicable: No Procedure Criteria Type of Procedure Procedure Type: Elective Elective Risks - COVID COVID Risk Discussion: The surgeon/proceduralist and patient have discussed in detail the risk of exposure to and/or potential harm posed by the COVID-19 virus with having a surgery/procedure at this time versus the risk of delaying the surgery/procedure. It is not possible to know either the risk of delaying the surgery or procedure or chance of getting an infection with perfect accuracy, but a joint decision was made between the patient and the surgeon/proceduralist to proceed at this time with the scheduled surgery/procedure as indicated on the consent form. Objective Data Vital Signs: Vital Signs Temp Pulse Resp BP Pulse Ox 97.9 F 62 16 130/74 H 99 02/25/21 18:59 02/25/21 18:59 02/25/21 18:59 02/25/21 18:59 02/25/21 20:38 Oxygen Delivery Method Room Air Weight: 130 lb 0.105 oz Body Mass Index (BMI) 24.5 Lab / Micro Data Result Diagrams: 02/25/21 15:42 02/25/21 15:42 Labs: Laboratory Results - last 24 hr 02/25/21 15:42: WBC 5.4, RBC 4.29, Hgb 10.3 L, Hct 33.3 L, MCV 77.6 L, MCH 24.0 L, MCHC 30.9 L, RDW Std Deviation 57.4 H, RDW Coeff of Moi 20.6 H, Plt Count 281, MPV TNP, Immature Gran % (Auto) 0.200, Neut % (Auto) 64.5, Lymph % (Auto) 26.2, [place] % (Auto) 7.6, Eos % (Auto) 0.9, Baso % (Auto) 0.6, Absolute Neuts (auto) 3.5, Absolute Lymphs (auto) 1.42, Nucleated RBC % 0, Differential Comment SCANNED 02/25/21 15:42: Sodium 140, Potassium 3.3 L, Chloride 108 H, Carbon Dioxide 29.0, Anion Gap 3 L, BUN 7, Creatinine 0.60, Estim Creat Clear Calc 89.35, Est GFR (MDRD) Af Amer 139, Est GFR (MDRD) Non-Af 115, BUN/Creatinine Ratio 11.7, Glucose 99, Calcium 8.6, Troponin I High Sens 5 02/25/21 15:42: Magnesium 2.0 02/25/21 19:33: Troponin I High Sens 5 Cardiology Labs/Tests 02/25/21 15:42: WBC 5.4, RBC 4.29, Hgb 10.3 L, Hct 33.3 L, MCV 77.6 L, MCH 24.0 L, MCHC 30.9 L, Plt Count 281, MPV TNP, Immature Gran % (Auto) 0.200, Neut % (Auto) 64.5, Lymph % (Auto) 26.2, [place] % (Auto) 7.6, Eos % (Auto) 0.9, Baso % (Auto) 0.6, Absolute Neuts (auto) 3.5, Nucleated RBC % 0 02/25/21 15:42: Sodium 140, Potassium 3.3 L, Chloride 108 H, Carbon Dioxide 29.0, Anion Gap 3 L, BUN 7, Creatinine 0.60, Est GFR (MDRD) Af Amer 139, Est GFR (MDRD) Non-Af 115, BUN/Creatinine Ratio 11.7, Glucose 99, Calcium 8.6 02/25/21 15:42: Magnesium 2.0 Rhythm: Sinus rhythm/sinus bradycardia EKG: Sinus rhythm/sinus bradycardia ECHO: [facility] echocardiogram: Unavailable for review at this time Stress Test: [facility] treadmill stress test: Summary: As noted above Radiography Diagnostic Testing: Radiology Impression Chest X-Ray 02/25/21 15:22 IMPRESSION: Normal x-ray examination of the chest. Electronically Signed: Rad Biggs MD at 15:34 EDT , Service support ,
[2021-02-25] MEDS: Metoprolol Tartrate 25 MG Tablet 12.5 MG PO (22:20)
[2021-02-25] MEDS: Montelukast 10 MG Tablet PO (22:21)
[2021-02-25] MEDS: 0.9% Normal Saline 1,000 ML 100 ML IV (22:41)
[2021-02-25] MEDS: 0.9% Saline Lock 10 ML Syringe IV (22:42)
[2021-02-25 22:49] LABS: Troponin-I HS 4 pg/mL (3.0-54.0)
[2021-02-26] VITALS (16 sets, daily range): BP systolic 102–134; BP diastolic 40–98; PULSE 47–76; RESP 12–14; TEMP 36.7–36.8; O2SAT 96–100
--- NOTE | 2021-02-26 00:04 | PCS.PANDOC ---
PANDEMIC DOCUMENTATION INITIATED: Date: 12/09/2020 Time: 190
--- NOTE | 2021-02-26 05:55 | EKG12_ITS ---
Test Reason : AM EKG Blood Pressure : / mmHG Vent. Rate : 056 BPM Atrial Rate : 056 BPM P-R Int : 150 ms QRS Dur : 074 ms QT Int : 446 ms P-R-T Axes : 073 070 054 degrees QTc Int : 430 ms Sinus bradycardia Otherwise normal ECG Confirmed by MELISSA GONZALEZ, BEKAH ([id number]), copy editor LUZ MARIA GRAHAM ([id number]) on 02/27/2021 9:06:31 AM Referred By: ASHLYN Confirmed By:BEKAH TORRES MD
[2021-02-26] MEDS: Aspirin 81 MG TAB.CHEW PO (06:21)
[2021-02-26 07:36] LABS: Internal QC Validated? YES +Cl - CLEAR BKGD; Pregnancy, Urine Negative Negative
[2021-02-26 08:09] LABS: Absolute Lymphocyte Count 1.28 X10^3/uL (0.83-4.51); Absolute Neutrophil Count 3.2 X10^3/uL (2.0-7.7); Basophil# 0.04 X10^3/uL; Basophil% 0.8 % (0-1); Eosinophil# 0.12 X10^3/uL; Eosinophils% 2.4 % (0-5); Hematocrit 34.1 % (37-47); Hemoglobin 10.7 g/dL (12.0-15.0); Lymphocyte # 1.28 X10^3/ul (0.83-4.51); Lymphocyte % 25.5 % (19-41); Mean Corp Hgb Conc 31.4 g/dL (32-36); Mean Corpuscular Hgb 24.3 pg (27.0-32.0); Mean Corpuscular Volume 77.3 fL (81-99); Mean Platelet Vol. 12.7 fl (6.2-12.0); NRBC Flagged by Analyzer 0 % (0-5); Neutrophil # 3.17 X10^3/uL (2.7-7.7); Neutrophil % 63.1 % (47-70); POSITIVE MORPHOLOGY YES; Platelet Count 258 K/mm3 (150-450); RBC Distribution Width CV 20.5 % (11.6-14.6); RBC Distribution Width SD 57.1 fl (35.1-43.9); Red Blood Count 4.41 M/mm3 (4.2-5.4)
[2021-02-26 08:16] LABS: Differential Indicated SCAN CRITERIA MET
[2021-02-26 08:28] LABS: International Normalized Ratio 1.1; Prothrombin Time (Protime)PT. 13.2 SECONDS (11.7-14.9)
[2021-02-26 08:29] LABS: Partial Thromboplast Time 26.4 Seconds (24.1-36.2)
[2021-02-26 08:44] LABS: ALB/GLOB Ratio 0.9 RATIO (0.9-2.4); AST(SGOT) 18 U/L (15-37); Alanine Aminotransfer ALT/SGPT 17 U/L (13-56); Albumin, Serum 3.4 g/dL (3.2-5.0); Alkaline Phosphatase 43 U/L (45-117); Anion Gap 4 (5-15); BUN 5 mg/dL (7-18); BUN/Creat Ratio 8.6 RATIO (10-20); Calcium,Total 8.3 mg/dL (8.5-10.1); Chloride 110 mmol/L (98-107); Cholesterol 154 mg/dL (200); Creatinine, Serum 0.58 mg/dL (0.55-1.02); EST Glomerular Filtration Rate 119 mL/min (>60); Est Glom Filt Rate - Afr Amer 144 mL/min (>60); Estimated Creatinine Clearance 92.43 ml/min; Globulin 3.9 g/dL (2.2-4.2); Glucose 83 mg/dL (74-106); High Density Lipoprotein 60 mg/dL; Potassium 4.3 mmol/L (3.5-5.1); Protein, Total 7.3 g/dL (6.4-8.2); Sodium Level 138 mmol/L (136-145); T4 Free Direct 0.88 ng/dL (0.76-1.46); Thyroid Stim Hormone (TSH) 1.19 uIU/mL (0.358-3.74); Triglycerides 38 mg/dL; Very Low Density Lipoprotein 8 mg/dL (5-40)
[2021-02-26 09:30] LABS: Anisocytosis 1+; Differential Comment SCANNED
--- NOTE | 2021-02-26 09:38 | CL.D_ITS ---
Patient Name: FRIEDA POZO Study Date: 02/26/2021 Performing: Case Block MD Ht: 61 inches 155 cm : 1975 Wt: 130.2 lbs 59 kg Age: 45 Gender: female BSA: 1.57 PROCEDURE(S) PERFORMED [id number] CLINICAL PROFILE AND INDICATIONS Indications: Worsening Angina, Suspected CAD Heart Failure: None Stress/Imaging Date: 02/24/2021 Angina Classification Anginal Classification w/in 2 Weeks: CCS III CAD Presentations: Stable angina. CONCLUSIONS Normal coronary arteries RECOMMENDATIONS Risk factor modification DESCRIPTION OF PROCEDURE The patient arrived to the procedure lab. The risks and benefits of the procedure as well as a full d escription of our services here and current unavailability of surgical backup were fully explained to the patient and/or their significant other prior to the catheterization. The Timeout was completed, verifying the correct patient and procedure. The patient's procedural site was prepped and draped in the usual fashion. Local anesthetic was given subcutaneously to right radial region with Lidocaine 2% . Using a modified Seldinger technique, arterial access was obtained via the right radial artery, a 6 Fr sheath was inserted. Left Coronary Artery selective angiography was performed in multiple views u sing a 5 Fr. 4.0 Watson catheter. Right Coronary Artery selective angiography was then performed in mu ltiple views using a 5 Fr. 4.0 Watson catheter.The arterial sheath was pulled and a TR Band was applie d for hemostasis w/ 9ml air CORONARY ANGIOGRAPHY DOMINANCE: Right Dominant LEFT HEART ASSESSMENT Left Ventricular Ejection Fraction: Not assessed LEFT MAIN: Angiographically normal LEFT ANTERIOR DESCENDING ARTERY: Angiographically normal CIRCUMFLEX ARTERY: Angiographically normal RIGHT CORONARY ARTERY: Angiographically normal COMPLICATIONS No Complications PROCEDURE MEDICATIONS Versed 1 mg IV Fentanyl 50 mcg IV Oxygen: 2 L/min via nasal cannula Heparin given IA 02/26/2021 09:12:58 Verapamil 1.25mg, Ntg 100mcgs, 3000 units of Heparin given IA 02/26/2021 09:12:58 SUMMARY OF HEMODYNAMIC DATA Time AIR REST ECG 08:49:38 Art 139/68 (96) 09:09:03 AO 102/64 (84) SA 09:15:30 Signed By Case Block MD On 02/26/2021 09:37:29 Case Block MD
[2021-02-26] MEDS: 0.9% Normal Saline 1,000 ML 75 ML IV (09:55)
[2021-02-26] MEDS: Ferrous Sulfate 325 MG Tablet PO (09:56)
--- NOTE | 2021-02-26 10:35 | CASEMGMT ---
According to the [facility] website, the following are in-network tertiary facilities: [facility], [place], [facility], [place], [facility], [facility], [facility], [place], [facility], and . [place] [facility]
--- NOTE | 2021-02-26 11:38 | PCM.DC ---
Discharge Instructions Diet Discharge Diet: No restrictions Activity Discharge Activity: Return to Normal Activity Weight Bearing Status: Weight bearing as tolerated Dressing / Incision Call your doctor if you observe: Fever of 101 or Higher, Numbness or Tingling, Shortness of breath, Dizziness, Chest pain, Increased palpitations (irregular heartbeat) and Calf discomfort Follow Up Care Please Follow Up With: Primary care provider When: Within the next two weeks. Test Results: Test results from this visit will be discussed in further detail at your follow-up appointment, if applicable. Discharge Plan Admission Admit Date/Time: 02/25/21 17:04 Primary Reason for Your Visit: Chest pain Attending Provider: Misha Alvarado Primary Care Provider: Frank Guevara Consulting Providers: Case Block Discharge Orders/Prescriptions Prescriptions: New aspirin 81 mg tablet,chewable 81 mg PO DAILY Qty: 30 RF: 0 Continued montelukast [Singulair] 10 mg tablet 10 mg PO QHS RF: 0 mometasone [Nasonex] 50 mcg/actuation spray,non-aerosol 4 spray INTRANASAL QDAY RF: 0 omeprazole 20 mg Tablet,Delayed Release (Dr/Ec) 20 mg PO DAILY PRN (Reason: Heartburn) RF: 0 ferrous sulfate 325 mg (65 mg iron) tablet 325 mg PO DAILY RF: 0 Referrals / Follow Up: Frank Guevara MD [Primary Care Provider] - Disposition Disposition (needs filled in before D/C Order can be placed): Home, Self Care
--- NOTE | 2021-02-26 12:32 | PHA.DC.MC ---
Pharmacy Service has performed discharge medication reconciliation and counseling for this patient. 1. ASPIRIN 81MG PO DAILYCM The patient's discharge medication list was reviewed for discrepancies and discrepancies were resolved. Home Medications mometasone 50 mcg/actuation nasal spray 4 spray INTRANASAL QDAY 07/15/17 montelukast 10 mg tablet 10 mg PO QHS 07/15/17 omeprazole 20 mg PO DAILY PRN 12/10/20 ferrous sulfate 325 mg PO DAILY 02/25/21 aspirin 81 mg PO DAILY #30 tab 02/26/21 The patient was counseled on the following discharge medications and changes in medications for homegoing were reviewed. The Reason for Use, instructions for use, and potential side effects were reviewed for all new medications. The patient's questions regarding all of their medications were answered. The patient was able to verbally demonstrate an understanding of their discharge medications.
--- NOTE | 2021-02-26 14:30 | DS.PCM_ITS ---
Documented by User: Michael HOGAN 02/26/21 14:37 Providers Date of Admission: 02/25/21 Primary Care Physician: Dr. Frank Guevara MD Consultations 02/25/21 18:48 Consult: Cardiology Routine Consulting Provider: Case Block Reason for Consult: Chest pain, abnormal stress testing outpatient EMERGENT Consult: No MD Notified: Yes Date Notified: 02/25/21 Time Notified: 17:04 Method of Notification: cortext Reason For Visit: CHEST PAIN Diagnosis Discharge Diagnosis (1) Chest pain: Status: Acute Code(s): R07.9 - Chest pain, unspecified Qualifiers: Chest pain type: unspecified Qualified Code(s): R07.9 - Chest pain, unspecified (2) Positive cardiac stress test: Status: Acute Code(s): R94.39 - Abnormal result of other cardiovascular function study (3) Gastro-esophageal reflux disease without esophagitis: Status: Acute Code(s): K21.9 - Gastro-esophageal reflux disease without esophagitis Medications at Discharge Home Medications mometasone 50 mcg/actuation nasal spray 4 spray INTRANASAL QDAY 07/15/17 montelukast 10 mg tablet 10 mg PO QHS 07/15/17 omeprazole 20 mg PO DAILY PRN 12/10/20 ferrous sulfate 325 mg PO DAILY 02/25/21 aspirin 81 mg PO DAILY #30 tab 02/26/21 Hospital Course Procedures Cardiac catheterization Summary of Care Provided Minutes Spent on Discharge: 35 Hospital Course: Disposition: Patient to be discharged home. 1) chest pain/ACS rule out Cardiac catheterization completed on 02/24 demonstrated globally normal coronary arteries with no evidence of ischemia. Cardiology was consulted and recommends risk factor modification, no additional investigation indicated at this time. There are findings concerning for angina pectoris. At the same time the patient may not have all the classic findings concerning for angina pectoris. High- sensitivity troponins were not elevated. TSH, T4, magnesium and lipid panel were all within normal limits. Patient is to follow-up with primary care provider and primary job recruiter within the next 2 weeks. 2) GERD Continue PPI. 3) chronic microcytic anemia Patient is hemodynamically stable and does not demonstrate any evidence of bl eed. Continue iron supplementation. 4) allergic rhinitis Continue montelukast and nasal steroid spray. 5) Graves' disease Not in acute flareup, TSH and free T4 levels were all within normal limits. Patient seen by Michael Goodman PA-C, under the supervision of Dr. Alvarado. Physical Exam Narrative Patient is a 45-year-old female comfortably resting in bed, alert and orient x3. Patient reports that chest pain from admission has resolved and is currently stable. Denies development of any new symptoms overnight. Does not appear to be in acute distress. Const alert, oriented x3 and no apparent distress HEENT normocephalic, head/scalp atraumatic and hearing grossly normal bilaterally Eyes PERRL, EOMs intact bilaterally and conjunctivae normal Neck no lymphadenopathy, supple and no JVD Resp normal respiratory effort, no retractions, no use of accessory muscles and clear to auscultation bilaterally Cardio regular rate, regular rhythm, no murmurs and no JVD GI normal to inspection, nondistended, normoactive bowel sounds, soft to palpation and non-tender Extremity normal to inspection, full ROM and no clubbing, cyanosis or edema Skin no rashes or lesions noted, no wounds and skin turgor normal Neuro CN's II-XII intact bilaterally Psych affect normal Weight / BMI Weight Weight: 130 lb 4.691 oz Body Mass Index (BMI) 24.5 ABG / Lab / Microbiology Data Result Diagrams: 02/26/21 07:38 02/26/21 07:38 Laboratory: Laboratory Results - last 24 hr 02/25/21 15:42: WBC 5.4, RBC 4.29, Hgb 10.3 L, Hct 33.3 L, MCV 77.6 L, MCH 24.0 L, MCHC 30.9 L, RDW Std Deviation 57.4 H, RDW Coeff of Moi 20.6 H, Plt Count 281, MPV TNP, Immature Gran % (Auto) 0.200, Neut % (Auto) 64.5, Lymph % (Auto) 26.2, [place] % (Auto) 7.6, Eos % (Auto) 0.9, Baso % (Auto) 0.6, Absolute Neuts (auto) 3.5, Absolute Lymphs (auto) 1.42, Nucleated RBC % 0, Differential Comment SCANNED 02/25/21 15:42: Sodium 140, Potassium 3.3 L, Chloride 108 H, Carbon Dioxide 29.0, Anion Gap 3 L, BUN 7, Creatinine 0.60, Estim Creat Clear Calc 89.35, Est GFR (MDRD) Af Amer 139, Est GFR (MDRD) Non-Af 115, BUN/Creatinine Ratio 11.7, Glucose 99, Calcium 8.6, Troponin I High Sens 5 02/25/21 15:42: Magnesium 2.0 02/25/21 19:33: Troponin I High Sens 5 02/25/21 22:09: Troponin I High Sens 4 02/26/21 07:24: Urine Test Negative 02/26/21 07:38: WBC 5.0, RBC 4.41, Hgb 10.7 L, Hct 34.1 L, MCV 77.3 L, MCH 24.3 L, MCHC 31.4 L, RDW Std Deviation 57.1 H, RDW Coeff of Moi 20.5 H, Plt Count 258, MPV 12.7 H, Immature Gran % (Auto) 0.200, Neut % (Auto) 63.1, Lymph % (Auto) 25.5, [place] % (Auto) 8.0, Eos % (Auto) 2.4, Baso % (Auto) 0.8, Absolute Ne uts (auto) 3.2, Absolute Lymphs (auto) 1.28, Nucleated RBC % 0, Differential Comment SCANNED, Anisocytosis 1+ 02/26/21 07:38: PT 13.2, INR 1.1, APTT 26.4 02/26/21 07:38: Sodium 138, Potassium 4.3, Chloride 110 H, Carbon Dioxide 24.0, Anion Gap 4 L, BUN 5 L, Creatinine 0.58, Estim Creat Clear Calc 92.43, Est GFR (MDRD) Af Amer 144, Est GFR (MDRD) Non-Af 119, BUN/Creatinine Ratio 8.6 L, Glucose 83, Calcium 8.3 L, Total Bilirubin 0.40, AST 18, ALT 17, Alkaline Phosphatase 43 L, Total Protein 7.3, Albumin 3.4, Globulin 3.9, Albumin/Globulin Ratio 0.9, Triglycerides 38, Cholesterol 154, LDL Cholesterol 86, VLDL Ch olesterol 8, HDL Cholesterol 60, TSH 1.19, Free T4 0.88 Radiography Diagnostic Testing: Radiology Impression Chest X-Ray 02/25/21 15:22 IMPRESSION: Normal x-ray examination of the chest. Electronically Signed: Rad Biggs MD at 15:34 EDT , Service support , D/C Instructions Discharge Diet: No restrictions Weight Bearing Status: Weight bearing as tolerated Call your doctor if you observe: Fever of 101 or Higher, Numbness or Tingling, Shortness of breath, Dizziness, Chest pain, Increased palpitations (irregular heartbeat) and Calf discomfort Please Follow Up With: Primary care provider When: Within the next two weeks. Meaningful Use Info Meaningful Use Diagnoses (Choose all that apply): None applicable Discharge Plan Admission Admit Date/Time: 02/25/21 17:04 Primary Reason for Your Visit: Chest pain Attending Provider: Misha Alvarado Primary Care Provider: Frank Guevara Consulting Providers: Case Block Discharge Orders/Prescriptions Prescriptions: New aspirin 81 mg tablet,chewable 81 mg PO DAILY Qty: 30 RF: 0 Continued montelukast [Singulair] 10 mg tablet 10 mg PO QHS RF: 0 mometasone [Nasonex] 50 mcg/actuation spray,non-aerosol 4 spray INTRANASAL QDAY RF: 0 omeprazole 20 mg Tablet,Delayed Release (Dr/Ec) 20 mg PO DAILY PRN (Reason: Heartburn) RF: 0 ferrous sulfate 325 mg (65 mg iron) tablet 325 mg PO DAILY RF: 0 Referrals / Follow Up: Frank Guevara MD [Primary Care Provider] - Disposition Disposition (needs filled in before D/C Order can be placed): Home, Self Care Documented by User: Dr. Misha Alvarado MD 02/26/21 17:14 Providers Date of Admission: 02/25/21 Reason For Visit: CHEST PAIN Medications at Discharge Home Medications mometasone 50 mcg/actuation nasal spray 4 spray INTRANASAL QDAY 07/15/17 montelukast 10 mg tablet 10 mg PO QHS 07/15/17 omeprazole 20 mg PO DAILY PRN 12/10/20 ferrous sulfate 325 mg PO DAILY 02/25/21 aspirin 81 mg PO DAILY #30 tab 02/26/21 Hospital Course Summary of Care Provided Hospital Course: This patient was seen in conjunction with SMAIRA Shepherd. I have independently interviewed and examined the patient and reviewed pertinent history, examination findings, laboratory and plan of management. I have reviewed the note and agree with the documented findings with the few additional points. In brief, patient is admitted for chest pressure. She had abnormal stress test in [facility] and an echo. The request to obtain medical record was sent but could not get it yet. Cardiac cath was done which shows normal coronary arteries. Patient mitral flow murmur tricuspid regurgitation. Patient is discharged home. Patient history of Graves' disease other comorbidities as mentioned above. Discharge medication reconciliation done. Discharge follow-up instructions completed. Discharge process discussed with the patient and all questions were answered to patient's satisfaction. Total time spent, exact 35 minutes on discharge meds reconciliation, examination, coordination of care with nurses and ancillary staff, review of imaging and blood test and discussion with the patient on follow-up instructions I have discussed my assessment with SAMIRA Shepherd and orders have been reviewed. Physical Exam Narrative Seen and examined. Patient does not have history of heart disease or lung disease. She did not had any problem related to heart in peripartum or during and therefore less likely peripartum cardiomyopathy. Patient has murmur. No family history of coronary artery disease. General: Alert, Oriented x3, Cooperative HEENT: Atraumatic, PERRLA, EOMI, Normocephalic Oral: No Gingival or Mucosal Lesions/ Ulcerations Neck: Supple, No JVD, Negative Carotid Bruits Lungs: Air entry equal in bilateral lung bases. No crepitation/rhonchi Cardiovascular: Regular rate, Regular Rhythm, Normal S1, Normal S2, systolic murmur over LLSB. Abdomen: Bowel Sounds Present, Soft, Non Tender, Non-Distended : No renal angle tenderness. No suprapubic tenderness. Extremities: No edema, Capillary Refill Less than 3 Seconds Skin: No rashes, No breakdown Musculoskeletal: No Tenderness to Palpation of Joints or Extremities Neurological: Cranial nerves II-XII grossly intact, DTR 2+/4 and Symmetrical, Neuro grossly intact Psych/Mental Status: Normal Affect, Appropriate. ABG / Lab / Microbiology Data Result Diagrams: 02/26/21 07:38 02/26/21 07:38 Discharge Plan Admission Admit Date/Time: 02/25/21 17:04 Primary Reason for Your Visit: Chest pain Attending Provider: Misha Alvarado Primary Care Provider: Frank Guevara Consulting Providers: Case Block Discharge Orders/Prescriptions Prescriptions: New aspirin 81 mg tablet,chewable 81 mg PO DAILY Qty: 30 RF: 0 Continued montelukast [Singulair] 10 mg tablet 10 mg PO QHS RF: 0 mometasone [Nasonex] 50 mcg/actuation spray,non-aerosol 4 spray INTRANASAL QDAY RF: 0 omeprazole 20 mg Tablet,Delayed Release (Dr/Ec) 20 mg PO DAILY PRN (Reason: Heartburn) RF: 0 ferrous sulfate 325 mg (65 mg iron) tablet 325 mg PO DAILY RF: 0 Referrals / Follow Up: Frank Guevara MD [Primary Care Provider] - Disposition Disposition (needs filled in before D/C Order can be placed): Home, Self Care Charges/Coding Visit Charges OBSV E&M: 06142 Observation care discharge
== END 2021-02-26 11:40 | disposition home or self-care (01) ==
LOC: ED 17:03 → PCU 17:34
PROVIDERS: Internal Medicine Cardiovascular Disease; Admitting Provider Family Medicine; Emergency Provider Emergency Medicine; PCP Family Medicine; Visit Provider Internal Medicine
DX: R07.89 Other chest pain (principal); R94.39 Abnormal result of other cardiovascular function study; E87.6 Hypokalemia; D25.9 Leiomyoma of uterus, unspecified; N92.0 Excessive and frequent menstruation with regular cycle; K21.9 Gastro-esophageal reflux disease without esophagitis; D50.9 Iron deficiency anemia, unspecified; J30.9 Allergic rhinitis, unspecified; E05.00 Thyrotoxicosis with diffuse goiter without thyrotoxic crisis or storm; Z79.899 Other long term (current) drug therapy; Z79.82 Long term (current) use of aspirin; Z79.51 Long term (current) use of inhaled steroids
CPT/HCPCS: 36415; 71045; 80048; 80053; 80061; 81025; 83735; 84439; 84443; 84484; 85025; 85610; 85730; 93005; 93454; 96360; 96361; 99152; 99153; 99218; 99251; 99285; J7030; Q9967; A4216; C1769; C1894; G0378; G0463

== ENCOUNTER → 2024-08-30 | Outpatient (CLI) | payer MEDICAID, SELFPAY ==
[2024-09-01 10:08] LABS: HPV APTIMA, High Risk Negative (Negative)
== END | disposition home or self-care (01) ==
LOC: LABSPEC 12:13
PROVIDERS: PCP Family Medicine; Visit Provider Family Medicine
DX: Z01.419 Encounter for gynecological examination (general) (routine) without abnormal findings (principal)
CPT/HCPCS: 87624; 88175; G0145